=== PATIENT | female | born 1935 | race Caucasian/White ===

== ENCOUNTER 2022-09-24 13:23 | Outpatient (CLI) | payer MEDICARE, SELFPAY | END 2022-09-24 13:24 | disposition home or self-care (01) | LOC: ANHSURGERY 13:42 | PROVIDERS: Visit Provider Urology | DX: N20.0 Calculus of kidney (principal) | CPT/HCPCS: 87086; 87088 ==

== ENCOUNTER 2022-10-03 01:11 | Day surgery (SDC) | payer MEDICARE, SELFPAY ==
[2022-09-16 10:28] VITALS: BMI 25.7
--- NOTE | 2022-09-16 10:54 | PC.NURSE ---
Addendum entered by Marciruz Kirk RN 09/17/22 11:26: YOU DO NOT HAVE TO HOLD YOUR PLAVIX AND ELIQUIS (PER GLADYS AT DR. MADISON'S OFFICE.) TAKE USUAL BUT DO NOT TAKE THEM THE MORNING OF SURGERY. Original Note: Report to the Outpatient Waiting Room, entrance under the green pavilion located off [facility], at time _9:15AM on date __10/03/22 . Planned Procedure Time: __11:15AM . Time changes happen often and if your time is changed the preop area will call you the afternoon before. - You and your visitor will be asked to self-screen and do not enter if you have any COVID symptoms. - We encourage only one visitor and NO visitors under age 16 are allowed at this time. Your visitor will receive communication by the phone number that is given day of service. - The patient visitor is requested to social distance or may leave the building when not with patient due to restrictions. - A mask is required within the hospital. Patients may have clear liquids (water, carbonated beverages, clear teas, apple juice) until 3 hours prior to surgery with a maximum of 20 ounces. - No food from midnight until time of surgery Take the following medications with a SIP of water the morning of surgery: __NONE Medications to discontinue per physician ___HOLD PLAVIX & ELIQUIS PER DR MADISON/CARDIOLOGY- PATIENT CALLING OFFICE TODAY. HOLD ALL VITAMINS/SUPPLEMENTS 3 DAYS PRE-OP- LAST DOSE 09/29/22 Please no make-up, nail swedish, hairspray, perfume, deodorant, or body powder the day of surgery. No jewelry (including any body piercings) or valuables the day of surgery, leave them at home. Please take a shower or bath the night before, or the morning of, surgery with an antibacterial soap. Wear comfortable, loose fitting clothing. Children are encouraged to wear pajamas. - Jewelry must be removed prior to entering the operating room. Rings and piercings that are not removed may be cut off. - The hospital will not accept responsibility for valuables. - Please leave all valuables, including medications, at home the day of surgery. If you are going home after surgery, a licensed driver examiner must drive you home. - NO public transportation without another adult. - We recommend that an adult stay with you for 24 hours following discharge. - We also recommend that you do not drive, make important decision, drink alcoholic beverages, or take any drugs that were not prescribed by your health care provider for at least 24 hours after your discharge time. Follow any additional instructions given to you from your surgeon. If you or anyone in your household have experienced Covid symptoms in the past week, please notify your surgeon or the nurse liaison at the phone number below for possible testing. Telephone instructions given to __PATIENT and asked if any additional questions and then verbalized understanding. Patient advised to call surgeon office or pre surgery nurse liaison [phone] if any additional questions.
--- NOTE | 2022-09-26 13:15 | PM.IMHP ---
H&P: HPI History of Present Illness Date/Time: 09/26/22 13:15 Chief Complaint: renal stone Narrative: 86-year-old with left renal stones and recurrent urinary tract infections. It is unclear whether these stones are parenchymal versus in the collecting system. She has failed lithotripsy. We will plan on ureteroscopy to see if we can deal with the stones. understands stones may not be in the collecting system. Understands may not improve recurrent infection Review of Systems Review of Systems: All systems reviewed & are unremarkable except as noted in HPI and below [facility] Social History Social History Smoking status: Never smoker Alcohol intake: current Substance use: never Spiritual care concerns: No Meds Home Medications and Allergies Home Medications Medication Instructions Recorded Confirmed Type Lactobacillus acidophilus and 1 cap PO DAILY 09/16/22 09/16/22 History rhamnosus 15 billion cell capsule (Probiotic) apixaban 5 mg tablet (Eliquis) 5 mg PO BID 09/16/22 09/16/22 History ascorbic acid (vitamin C) 1,000 mg 1 g PO DAILY 09/16/22 09/16/22 History tablet biotin 5,000 mcg sublingual tablet 5,000 mcg sublingual DAILY 09/16/22 09/16/22 History cholecalciferol (vitamin D3) 25 125 mcg PO DAILY 09/16/22 09/16/22 History mcg (1,000 unit) capsule clopidogrel 75 mg tablet (Plavix) 75 mg PO DAILY 09/16/22 09/16/22 History cyclosporine 0.05 % eye drops in a 1 drp EACH EYE BID 09/16/22 09/16/22 History dropperette (Restasis) levocetirizine 5 mg tablet (Xyzal) 5 mg PO DAILY 09/16/22 09/16/22 History magnesium 250 mg tablet 250 mg PO DAILY 09/16/22 09/16/22 History rosuvastatin 5 mg tablet 10 mg PO HS 09/16/22 09/16/22 History trimethoprim 100 mg tablet 100 mg PO HS 09/16/22 09/16/22 History vit A 1000 unit-C 300 mg-E 100 1 tablet PO DAILY 09/16/22 09/16/22 History pwoj-[id number]-lutn 2 [id number]-djkdxy tablet vitamin E 200 unit tablet 184 mg PO DAILY 09/16/22 09/16/22 History Allergies Allergy/AdvReac Type Severity Reaction Status Date / Time azithromycin Allergy Hives Verified 09/16/22 10:10 methylprednisolone Allergy Rash Verified 09/16/22 10:14 Sulfa (Sulfonamide Allergy Rash Verified 09/16/22 10:10 Antibiotics) Exam Narrative: no acute distress normal breathing alert orient x3 Assessment and Plan Assessment and plan (1) Calculus, kidney: Code(s): N20.0 - Calculus of kidney Status: Acute Assessment and Plan: plan for ureteroscopy and evaluation of the renal collecting system. If stones are present they will be dealt with. Understands risks of bleeding, infection, damage to the urinary tract, lack of presence of stone, inability to solve symptoms of recurrent infection. Agrees to proceed
[2022-10-03] VITALS (7 sets, daily range): BP systolic 96–167; BP diastolic 53–87; PULSE 60–77; RESP 12–16; TEMP 36.2–36.8; O2SAT 97–100; BMI 26.2
--- NOTE | ~2022-10-03 | XR_ITS ---
EXAMINATION: XR retrograde pyelogram BI DATE: 10/03/2022 16:36 DOPEMAN INDICATION: Bilateral retrograde pyelogram TECHNIQUE: Multiple fluoroscopic images from a lateral retrograde pyelogram are submitted for review. FINDINGS: The left retrograde pyelogram is unremarkable without evidence for stricture or filling def ect. The distal aspect of the left ureter is not visualized. There are multiple filling defects in th e right renal pelvis on the right retrograde pyelogram which may represent stones or gas bubbles. No significant dilation of the right ureter. IMPRESSION: 1. Filling defects right renal pelvis which may represent gas or stones. Unremarkable left retrograd e pyelogram.. Correlate with real time procedural findings for details. Reviewed, dictated and finalized at location A. MAN IMPRESSION: 1. Filling defects right renal pelvis which may represent gas or stones. Unrem arkable left retrograde pyelogram.. Correlate with real time procedural finding s for details.
--- NOTE | 2022-10-03 07:33 | WPDHPUPDATE1 ---
History and Physical Update Update Date/Time: 10/03/22 07:33 History and Physical has been reviewed, including an updated exam of the patient. There are NO changes in the patient's condition. Risks, benefits, and alternatives have been discussed and questions answered. Patient agrees to proceed with procedure.
[2022-10-03] MEDS: LACTATED RINGERS 1,000 ML 30 ML IV CONT (09:30)
--- NOTE | 2022-10-03 09:55 | WPDANESEPPF ---
Anes - Initial Pre Proc Eval Procedure: Operation Date: 10/03/22 11:15 Proposed Procedures p Cystoscopy, Left Ureteroscopy, Left Retrograde Pyelogram with Left Stent Placement - Edmundo Luke MD Date/Time: 10/03/22 09:55 Surgeon: Edmundo Luke MD Pre Op Diagnosis: left kidney stone Patient Data Age: 86 Gender: F Height: 1.63 m Weight: 69.3 kg Last Vital Signs Temp 36.2 C L 10/03/22 09:05 Pulse 77 10/03/22 09:05 Resp 16 10/03/22 09:05 BP 165/70 H 10/03/22 09:05 Pulse Ox 97 10/03/22 09:05 O2 Del Method Room Air 10/03/22 09:05 Allergies Allergy/AdvReac Type Severity Reaction Status Date / Time azithromycin Allergy Hives Verified 10/03/22 09:18 methylprednisolone Allergy Rash Verified 10/03/22 09:18 Sulfa (Sulfonamide Allergy Rash Verified 10/03/22 09:18 Antibiotics) Home Medications Medication Instructions Recorded Confirmed Type Lactobacillus acidophilus and 1 cap PO DAILY 09/16/22 09/16/22 History rhamnosus 15 billion cell capsule (Probiotic) apixaban 5 mg tablet (Eliquis) 5 mg PO BID 09/16/22 09/16/22 History ascorbic acid (vitamin C) 1,000 mg 1 g PO DAILY 09/16/22 09/16/22 History tablet biotin 5,000 mcg sublingual tablet 5,000 mcg sublingual DAILY 09/16/22 09/16/22 History cholecalciferol (vitamin D3) 25 125 mcg PO DAILY 09/16/22 09/16/22 History mcg (1,000 unit) capsule clopidogrel 75 mg tablet (Plavix) 75 mg PO DAILY 09/16/22 09/16/22 History cyclosporine 0.05 % eye drops in a 1 drp EACH EYE BID 09/16/22 09/16/22 History dropperette (Restasis) levocetirizine 5 mg tablet (Xyzal) 5 mg PO DAILY 09/16/22 09/16/22 History magnesium 250 mg tablet 250 mg PO DAILY 09/16/22 09/16/22 History rosuvastatin 5 mg tablet 10 mg PO HS 09/16/22 09/16/22 History trimethoprim 100 mg tablet 100 mg PO HS 09/16/22 09/16/22 History vit A 1000 unit-C 300 mg-E 100 1 tablet PO DAILY 09/16/22 09/16/22 History flde-B7-V8-lutn 2 io-hgfh-rquvrf tablet vitamin E 200 unit tablet 184 mg PO DAILY 09/16/22 09/16/22 History Patient hx anesthesia problems: none Family hx anesthesia problems: none Results Review: All pre-operative results and documents have been reviewed as part of the pre-operative evaluation. [facility] Social History Social History Smoking status: Never smoker Alcohol intake: current Substance use: never Living arrangements: alone Spiritual care concerns: No Anes - Eval Final PreProcedure Day of Procedure 10/03/22 09:55 Patient weight: overweight Heart: regular rate and rhythm Lungs: decreased breath sounds Airway: Mallampati scale class II Neurological: other (alert) Last oral intake: >/= 8 hours ASA classification: IV Emergent: no Anesthetic plan: proceed Anesthesia type and monitoring: general LMA and standard monitoring Results Review: All pre-operative results and documents have been reviewed as part of the pre-operative evaluation. Informed Consent: The patient's anesthetic plan and its attendant risks and benefits were discussed with the patient/family/POA. Questions were solicited and answers provided to the satisfaction of the patient/family/POA.
[2022-10-03] MEDS: ceFAZolin 2 GM/D5W 50 ML 2 GM/50 ML BAG IVPB (10:06)
[2022-10-03] MEDS: LIDOCAINE HCL 2% GEL UROJET 10 ML PKG MUCOUS MEM (10:30)
--- NOTE | 2022-10-03 10:32 | W.PM.PROC2 ---
Procedure Note - Detailed Date of Procedure 10/03/22 Pre-op Diagnosis left kidney stone Post-op Diagnosis Same Procedure Performed Cystoscopy bilateral retrograde pyelograms Surgeon Edmundo Luke MD Anesthesia General Indications This is a woman with possible nephrolithiasis on the left. It has failed lithotripsy twice. It is difficult to tell this is parenchymal or within the collecting system. See today for intervention. She understands risks of bleeding, infection, lack of presence of stone she agrees to proceed Findings Left-sided calcification is not within the collecting system Description of Procedure She was correctly identified. Informed consent obtained. She from the operating room. She was given general anesthesia. She was prepped and draped in a sterile fashion. Time-out performed. Cystoscopy revealed a normal appearing bladder. No tumors or stones. No abnormal red patches. No foreign bodies. On presser and shaper knitted goods radiograph the calcification was easily seen area of the left kidney. A retrograde pyelogram was performed on the left. There is a delicate ureter without extravasation or filling defect. I outlined the collecting system. It became very apparent that the stone was not within the collecting system. It is in the upper pole parenchyma of the kidney. There was no other filling defects or abnormalities in the collecting system. I repeated this retrograde pyelogram on the contralateral side. Again there was a delicate ureter and collecting system again there is no hydronephrosis or filling defects. Both ureters were seen to excrete dye promptly. Her bladder was drained. She was awakened transferred to PACU in stable condition. Estimated Blood Loss 0 Condition Stable Disposition PACU
--- NOTE | 2022-10-03 11:47 | SUR.PHASEII ---
RN called Dr. Luke to clarify if patient needs to continue antibiotics. He said he will send a prescription to her pharmacy for a refill.
== END 2022-10-03 12:04 | disposition home or self-care (01) ==
PROVIDERS: Visit Provider Urology
PROC: (CPT 52352; principal; 2022-10-03 11:15)
DX: N20.0 Calculus of kidney (principal); R93.41 Abnormal radiologic findings on diagnostic imaging of renal pelvis, ureter, or bladder; Z79.01 Long term (current) use of anticoagulants; Z79.02 Long term (current) use of antithrombotics/antiplatelets
CPT/HCPCS: 52005; 74420; A9270; C1769; J0690; J2405; J2704; J3010; J7120